=== PATIENT | female | born 1990 | race Caucasian/White ===

== ENCOUNTER 2019-10-10 11:04 | Emergency (ER) | payer MEDICAID, SELFPAY ==
[2019-10-10 11:07] VITALS: BP 148/93; PULSE 96; RESP 18; TEMP 36.6; O2SAT 99; BMI 33.9
--- NOTE | 2019-10-10 11:33 | RAD_ITS ---
STUDY: X-RAY - RIGHT ANKLE REASON FOR EXAM: Female, 29 years old. Right ankle pain and swelling x several weeks TECHNIQUE: 3 view(s) of the ankle. COMPARISON: None. FINDINGS: Normal visualized distal tibia and fibula. Normal medial and lateral malleoli. Normal tibiotalar articulation and ankle mortise. Normal visualized talus and calcaneus. The visualized subtalar, talonavicular, calcaneocuboid and tarsal articulations are normal. The soft tissue structures are unremarkable. RAD/Ankle min 3 Views IMPRESSION: Normal x-ray examination of the ankle. Electronically Signed: Steven Reardon, at 12:16 EDT , Service support ,
--- NOTE | 2019-10-10 11:47 | ED.DCSUM_ITS ---
History of Present Illness Chief Complaint: Lower Extremity Injury Informant: Patient Onset: Weeks Current Severity: Mild Maximum Severity: Mild Narrative: Right ankle pain for 1 week Complains of right ankle pain for 1 week believes that he struck the ankle against some type of a rocking chair he was not compressed by the walking device just struck the side, pain in the ankle since presents for evaluation no other complaints no history of injury to that extremity Past Medical History - Allergies and Home Meds Allergies/Adverse Reactions: Allergies No Known Allergies Allergy (Verified 10/10/19 11:06) Primary Care Physician: Kasie Smith,Out of [Primary Care Provider] - Past Medical History: - - Currently undergoing what patient describes as hormone therapy for gender issues Smoking Status: Never smoker Review of Systems General: Denies: Chills, Fever, Sweats Eyes: Denies: Visual changes - bilaterally, Diplopia ENT: Denies: Rhinorrhea, Sore throat Cardiovascular: Denies: Chest pain, Palpitations Respiratory: Denies: Dyspnea, Cough, Dyspnea on exertion Gastrointestinal: Denies: Abdominal pain, Nausea, Vomiting, Diarrhea, Melena, Hematochezia Genitourinary: Denies: Dysuria, Hematuria, Frequency Musculoskeletal: Reports: Extremity Pain. Denies: Back pain Skin: Denies: Rash, Wounds Neurological: Denies: Headache, Weakness, Numbness Physical Exam Vital Signs/Narrative: Vital Signs Temp Pulse Resp BP Pulse Ox 10/10/19 11:07 97.9 F 96 18 148/93 H 99 General: Well nourished, Well developed, No Acute Distress, - - Patient has a physical appearance of a female is in no distress Head: Normocephalic, Atraumatic Eyes: Perrl, EOMI ENT: Moist mucous membranes, No rhinorrhea Neck: Supple, Nontender Cardiovascular: Regular rate, Regular rhythm, No murmurs Respiratory: No distress, CTA bilaterally, Chest nontender Abdomen: Soft, Nontender, Nondistended, Normal bowel sounds Back: Nontender, Normal Inspection Extremities: Nontender, No edema, - - The patient has a very mild pain to the lateral right ankle there is no warmth swelling or redness dorsi and plantar flexion normal foot unremarkable tib-fib ankle and foot knee normal otherwise Skin: Normal color, No rash Neurological: Alert, Oriented x3, Cranial nerves II-XII grossly intact, Normal Strength, Normal Sensation Psychological: Normal affect, Normal Mood Diagnostic/Tx/Re-eval - Medical Decision Making Given all the above x-rays obtained unremarkable explained the above the differential concept of occult injury Aircast does not wish to have crutches Naprosyn for pain he will follow-up with his outpatient providers for further management Home stable Impression final right ankle injury ED Disposition - Plan for ED Patient: Diagnosis: Right ankle injury Instructions: ED Sprain Ankle W X Ray Prescriptions: Naproxen [Naprosyn] 500 mg PO BID PRN #20 tab Prescription Printed Referrals: [facility] Doctor,Out of [Primary Care Provider] -
--- NOTE | 2019-10-10 12:18 | DCINST.ED_ITS ---
ED Disposition - Plan for ED Patient: Diagnosis: Right ankle injury Instructions: ED Sprain Ankle W X Ray Prescriptions: Naproxen [Naprosyn] 500 mg PO BID PRN #20 tab Prescription Printed Referrals: [facility] Doctor,Out of [Primary Care Provider] -
[2019-10-10 12:39] VITALS: BP 128/77; PULSE 90; RESP 18; O2SAT 99
== END 2019-10-10 12:45 | disposition home or self-care (01) ==
LOC: ED 12:07
PROVIDERS: Emergency Provider Emergency Medicine
DX: S99.911A Unspecified injury of right ankle, initial encounter (principal); W22.09XA Striking against other stationary object, initial encounter; Y93.89 Activity, other specified; Y92.009 Unspecified place in unspecified non-institutional (private) residence as the place of occurrence of the external cause; Y99.8 Other external cause status
CPT/HCPCS: 73610; 99282

== ENCOUNTER → 2019-11-02 | Outpatient (CLI) | payer MEDICAID, SELFPAY ==
[2019-10-10 11:07] VITALS: BMI 33.9
[2019-11-02 08:02] LABS: Magnesium 1.7 mg/dL (1.6-2.6); Phosphorus 2.7 mg/dL (2.5-4.9)
[2019-11-02 09:20] LABS: Vitamin B12 707 pg/mL (211-911); Vitamin D,25 Hydroxy 24.6 ng/mL
== END | disposition home or self-care (01) ==
DX: G43.909 Migraine, unspecified, not intractable, without status migrainosus (principal); Q56.0 Hermaphroditism, not elsewhere classified; R53.83 Other fatigue
CPT/HCPCS: 36415; 82306; 82607; 83735; 84100